=== PATIENT | male | born 1990 | race African-American/Black ===

== ENCOUNTER 2017-06-06 12:39 | Emergency (ER) | payer SELFPAY ==
[~2017-06-06] VITALS: Ht 170.2 cm; Wt 74.5 kg
[2017-06-06 12:42] VITALS: BP 157/87; TEMP 98.9
[2017-06-06 14:03] LABS: BASO % 0.5 % (0.0-2.0); EOS # 0.2 (0.0-0.7); EOS % 2.2 % (0-4.0); GRAN # 5.9 (1.4-6.5); GRAN % 68.4 % (42.2-75.2); HEMATOCRIT 43.6 % (42.0-52.0); HEMOGLOBIN 15.2 g/dl (13.5-18.0); LYMPH # 1.7 (1.2-3.4); LYMPH % 19.5 % (20.0-51.0); MEAN CELL VOLUME 95 fl (80.0-100.0); MEAN CORPUSCULAR HEMOGLOBIN 33 pg (27.0-31.0); MEAN CORPUSCULAR HGB CONC 35 g/dl (33.0-37.0); MEAN PLATELET VOLUME 12.1 fl (7.4-10.4); MONO # 0.8 (0.1-0.6); MONO % 8.9 % (1.7-9.3); PLATELET COUNT 186 K/mm3 (130-400); RED BLOOD COUNT 4.58 M/mm3 (4.20-5.60); WHITE BLOOD COUNT 8.7 K/mm3 (4.8-10.8)
[2017-06-06 15:09] VITALS: PULSE 76
== END 2017-06-06 15:09 | disposition home or self-care (01) ==
LOC: COL.ER 12:39
PROVIDERS: Physician Assistant Medical
DX: S86.912A Strain of unspecified muscle(s) and tendon(s) at lower leg level, left leg, initial encounter (principal); F17.210 Nicotine dependence, cigarettes, uncomplicated; X58.XXXA Exposure to other specified factors, initial encounter

== ENCOUNTER 2017-12-27 19:37 | Emergency (ER) | payer OTHER ==
[~2017-12-27] VITALS: Ht 170.2 cm; Wt 75.0 kg
[2017-12-27 19:43] VITALS: BP 137/94; TEMP 98.1
[2017-12-27] MEDS ORDERED: OCUFLOX OPHTH DR5 ML OU (20:32)
[2017-12-27 21:01] VITALS: PULSE 94
== END 2017-12-27 21:01 | disposition home or self-care (01) ==
LOC: COL.ER 19:37
DX: H10.9 Unspecified conjunctivitis (principal); F17.210 Nicotine dependence, cigarettes, uncomplicated
CPT/HCPCS: J0696

== ENCOUNTER 2018-10-27 22:03 | Emergency (ER) | payer OTHER ==
[~2018-10-27] VITALS: Ht 170.2 cm; Wt 79.5 kg
[~2018-10-27 22:03] MED LIST: OCUFLOX OPHTH DR5 ML OU
[2018-10-27 22:04] VITALS: BP 150/95; TEMP 98.7
[2018-10-27] MEDS ORDERED: SSD25 GM TP (22:35)
[2018-10-27] MEDS ORDERED: NORCO 325 MG-51 TAB PO (22:35)
[2018-10-28 00:45] VITALS: PULSE 115
== END 2018-10-28 00:45 | disposition home or self-care (01) ==
LOC: COL.ER 22:03
DX: T23.202A Burn of second degree of left hand, unspecified site, initial encounter (principal); Z23 Encounter for immunization; X19.XXXA Contact with other heat and hot substances, initial encounter; Y92.009 Unspecified place in unspecified non-institutional (private) residence as the place of occurrence of the external cause
CPT/HCPCS: J1170